=== PATIENT | female | born 1965 | race Asian ===

== ENCOUNTER 2017-08-07 17:59 | Emergency (ER) | payer OTHER ==
[~2017-08-07] VITALS: Ht 157.5 cm; Wt 49.0 kg
[2017-08-07 22:14] VITALS: BP 119/79
== END 2017-08-07 22:19 | disposition home or self-care (01) ==
LOC: ER 17:59
DX: R25.2 Cramp and spasm (principal); I05.9 Rheumatic mitral valve disease, unspecified; Z88.1 Allergy status to other antibiotic agents; Z88.3 Allergy status to other anti-infective agents; Z88.2 Allergy status to sulfonamides; Z98.890 Other specified postprocedural states
CPT/HCPCS: 93005; 99283